=== PATIENT | male | born 1945 | race Two or more races ===

== ENCOUNTER 2020-02-03 18:43 | Emergency (ER) | payer BC, MEDICARE ==
[~2020-02-03] VITALS: Ht 167.6 cm; Wt 70.0 kg
--- NOTE | 2020-02-03 19:57 | NUR ---
Dr. Webb at bedside to suture lac.
[2020-02-03] MEDS ORDERED: CEPH500C5 PO (20:10)
[2020-02-03] MEDS ORDERED: cephalexin 250mg capsule PO ONE (20:15)
[2020-02-03] MEDS ORDERED: tetanus & diphtheria toxoid (Td) vaccine 0.5ml IMVAC ONE (20:25)
[2020-02-03] MEDS ORDERED: TETanus/Pertussis (Acell)/Diphther VAC/PF (Tdap-Adult) 0.5ml syringe IMVAC ONE (20:25)
[2020-02-03 20:42] VITALS: BP 137/70
[2020-02-04] MEDS ORDERED: LIDOcaine 1% W/epiNEPHrine 1:100,000 20ml vial ONE (18:35)
== END 2020-02-03 20:44 | disposition home or self-care (01) ==
LOC: ER 18:44
DX: S81.812A Laceration without foreign body, left lower leg, initial encounter (principal); E11.9 Type 2 diabetes mellitus without complications; Z95.1 Presence of aortocoronary bypass graft; Z88.6 Allergy status to analgesic agent; Z79.2 Long term (current) use of antibiotics; W22.8XXA Striking against or struck by other objects, initial encounter; Y93.89 Activity, other specified; Y92.89 Other specified places as the place of occurrence of the external cause; Y99.8 Other external cause status
CPT/HCPCS: 12004; 90471; 90715; 99283